=== PATIENT | female | born 1955 | race African-American/Black ===

== ENCOUNTER 2017-01-21 08:50 | Day surgery (SDC) | payer BC ==
[~2017-01-21] VITALS: Ht 177.8 cm; Wt 111.1 kg
--- NOTE | ~2017-01-21 | EGD ---
EGD REPORT [facility] [address] [place] [address] NAME: SONU PEREIRA : 55 STATUS : REG [facility] PAT#: [id number] AGE: 61 ADM/REG DATE : 01/21/17 MR#: [id number] REPORT SERV DATE: 01/21/17 DICTATED BY: JOSI FRANCO DATE: 01/21/17 REPORT STATUS : Draft [facility] DATE: 01/21/17 Endoscopy Center Patient Name: Sonu Pereira Date of : 1955 Attending MD: JOSI FRANCO, Procedure Date No Time: 01/21/2017 Procedure: Lower EUS Indications: Rectal mucosal mass found on flex sig/colonoscopy, , Rectal deformity found on endoscopy; subepithelial tumor versus extrinsic compression. Rectal carcinoid Referring MD: CALEB SWEET, GLORIA EWDARDS MD Medicines: Monitored Anesthesia Care Complications: No immediate complications. Estimated blood loss: None. Procedure: Pre-Anesthesia Assessment: - ASA Grade Assessment: III - A patient with severe systemic disease. After obtaining informed consent, the endoscope was passed under direct vision. Throughout the procedure, the patient's blood pressure, pulse, and oxygen saturations were monitored continuously. The Endoscope was introduced through the anus and advanced to the sigmoid colon for ultrasound. The GIF [id number] was introduced through the anus and advanced to the sigmoid colon for ultrasound. Findings: The perianal and digital rectal examinations were normal. Endoscopic Finding : One 9 mm nodule was found in the rectum. Preparations were made for mucosal resection. Band ligator and snare mucosal resection was successfully performed. Endosonographic Finding : The anal canal was normal. A round intramural (subepithelial) lesion was found in the rectum. The lesion was hypoechoic. Sonographically, the origin appeared to be within the submucosa (Layer 3). The lesion measured up to 6 mm in thickness. No lymph nodes were seen in the perirectal region. Impression: - Nodule in the rectum. - Endosonographic images of the anal canal were unremarkable. - An intramural (subepithelial) lesion was visualized endosonographically in the rectum. The origin of the lesion appeared to be within the submucosa (Layer 3). - No lymph nodes were seen in the perirectal region EGD REPORT [place] [id number] [place]. [address] NAME: SONU PEREIRA : 55 STATUS : REG [facility]#: [id number] AGE: 61 ADM/REG DATE : 01/21/17 MR#: [id number] REPORT SERV DATE: 01/21/17 DICTATED BY: JOSI FRANCO DATE: 01/21/17 REPORT STATUS : Draft TRANSCRIBED BY: [employer] DATE: 01/21/17 during endosonographic examination. - Mucosal resection was successfully performed. Recommendation: - Return to previous diet. - Continue present medications. - Await path results. Procedure Code(s): --- Professional --- 10820, Sigmoidoscopy, flexible; with endoscopic ultrasound examination 70122, Sigmoidoscopy, flexible; with removal of tumor(s), polyp(s), or other lesion(s) by snare technique Diagnosis Code(s): --- Professional --- K62.89, Other specified diseases of anus and rectum CPT copyright 2013 [employer] [place] [employer]. All rights reserved. The codes documented in this report are preliminary and upon composite engineer review may be revised to meet current compliance requirements. JOSI FRANCO, 01/21/2017 10:54 AM Number of Addenda: 0 Note Initiated On: 01/21/2017 10:24 AM Scope Withdrawal Time 0 hours 0 minutes 0 seconds [id number] [address]
[~2017-01-21 08:50] MED LIST: CALTRA600D PO; COZ50 PO; FISH-EPA1000 MG PO; GLUCPH PO; INTEGRA PLUS C1 EACH PO; MOBIC15 MG PO; NIACIN 500 PO; VITAMIN B-121000 MC1 SL; VITAMIN D400 UNI1 PO; VITE PO
== END 2017-01-21 23:59 | disposition home or self-care (01) ==
LOC: DMU 08:50
PROVIDERS: Internal Medicine Gastroenterology
PROC: 0DBP8ZZ Excision of Rectum, Via Natural or Artificial Opening Endoscopic (ICD-10-PCS; principal; 2017-01-21 10:00)
PROC: 0DJD8ZZ Inspection of Lower Intestinal Tract, Via Natural or Artificial Opening Endoscopic (ICD-10-PCS; 2017-01-21 10:00)
DX: K62.89 Other specified diseases of anus and rectum (principal); I10 Essential (primary) hypertension; K21.9 Gastro-esophageal reflux disease without esophagitis; K44.9 Diaphragmatic hernia without obstruction or gangrene; E11.9 Type 2 diabetes mellitus without complications; F17.210 Nicotine dependence, cigarettes, uncomplicated; M19.90 Unspecified osteoarthritis, unspecified site; Z98.51 Tubal ligation status; Z98.890 Other specified postprocedural states
CPT/HCPCS: 76872; 82962; 88305; 88307; 88341; 88342; C1725